=== PATIENT | female | born 1975 | race Hispanic/Latino ===

== ENCOUNTER 2017-02-03 11:25 | Emergency (ER) | payer SELFPAY ==
[2017-02-03 12:00] VITALS: BP 131/90; PULSE 116; RESP 18; TEMP 98.8; O2SAT 100
[2017-02-03 12:33] LABS: RBC URINE 1 /hpf (0-3); URINE BILIRUBIN NEGATIVE (NEGATIVE); URINE BLOOD NEGATIVE (NEGATIVE); URINE COLOR Yellow (YELLOW); URINE GLUCOSE (UA) NORMAL (Normal); URINE KETONE NEGATIVE (NEGATIVE); URINE LEUKOCYTE ESTERASE NEG Leu/uL (Negative); URINE PROTEIN NEGATIVE (NEGATIVE); URINE UROBILINOGEN NORMAL mg/dL (0.2-1.0); WBC URINE < 1 /hpf (0-5)
[2017-02-03] MEDS ORDERED: Sodium Chloride 0.9% 1,000 ML IV ONE (12:37)
--- NOTE | 2017-02-03 12:37 | C.PDOC ---
History Of Present Illness 41 y/o female with PMHx of Migraine presents to ED with complaints of headache for 2.5 weeks. Patient states she took 2 pills of Advil liquid gel when she awoke this morning. Patient states she had h/o MRI on 05/2016 that when she was diagnosed with sinusitis. Patient reports nausea and photophobia. (+) nasal congestion. Notes h/o migraines though never evaluated by neurologist. Denies fever, chills, vision changes, focal deficits, neck pain, or any other complaints at this time. Time Seen by Provider: 02/03/17 12:19 Chief Complaint (Nursing): Headache History Per: Patient History/Exam Limitations: no limitations Onset/Duration Of Symptoms: Days Current Symptoms Are (Timing): Still Present Quality: "Pain" Preceeding Symptoms: Known Migraine Symptoms. denies: Visual Disturbances Associated Symptoms: Nausea. denies: Photophobia, Blurred Vision Past Medical History Reviewed: Historical Data, Nursing Documentation, Vital Signs Vital Signs: Last Vital Signs Temp 98.8 F 02/03/17 11:58 Pulse 116 H 02/03/17 11:58 Resp 18 02/03/17 11:58 BP 131/90 02/03/17 11:58 Pulse Ox 100 02/03/17 12:58 - Medical History PMH: HTN, Migraine Surgical History: No Surg Hx Family History: States: No Known Family Hx - Social History Hx Alcohol Use: Yes Hx Substance Use: No Review Of Systems Constitutional: Negative for: Fever, Chills Eyes: Negative for: Vision Change Gastrointestinal: Positive for: Nausea. Negative for: Vomiting Skin: Negative for: Rash Neurological: Positive for: Headache. Negative for: Weakness, Numbness, Dizziness Physical Exam - Physical Exam Appears: Non-toxic, No Acute Distress Skin: Warm, Dry, No Rash Head: Atraumatic, Normacephalic Eye(s): bilateral: Normal Inspection, EOMI Nose: Normal Oral Mucosa: Moist Neck: Normal ROM, Supple Chest: Symmetrical Cardiovascular: Rhythm Regular Respiratory: Normal Breath Sounds, No Accessory Muscle Use, No Rales, No Rhonchi , No Wheezing Gastrointestinal/Abdominal: Soft, No Tenderness, No Guarding, No Rebound Extremity: Normal ROM, Capillary Refill (<2 seconds) Neurological/Psych: Oriented x3, Normal Speech, Normal Cognition, Normal Cranial Nerves (2-12 intact), Normal Motor, Normal Sensation, Other (no focal deficts) ED Course And Treatment O2 Sat by Pulse Oximetry: 100 (RA) Progress Note: Toradol ordered, CT scan head. Prior to medication and imaging, patient stated she had to pickup driver daughter and left ED. Patient stated she would return if symptoms worsen. Disposition - Disposition Disposition: ELOPEMENT - ER ONLY Disposition Time: 12:00 Condition: STABLE Forms: [facility] [employer] ([place]ian) - Clinical Impression Clinical Impression: Headache - PA / MEDICAL TRANSCRIPTION SUPERVISOR / Resident Statement MD/DO has reviewed & agrees with the documentation as recorded. - Scribe Statement The provider has reviewed the documentation as recorded by the Errolibtracy Tsang All medical record entries made by the Errolibtracy were at my direction and personally dictated by me. I have reviewed the chart and agree that the record accurately reflects my personal performance of the history, physical exam, medical decision making, and the department course for this patient. I have also personally directed, reviewed, and agree with the discharge instructions and disposition.
== END 2017-02-03 12:57 | disposition left against medical advice (07) ==
LOC: C.ER 11:25
DX: R51 Headache (principal)